=== PATIENT | female | born 1980 | race Caucasian/White ===

== ENCOUNTER 2021-09-04 11:13 | Emergency (ER) | payer BC ==
[~2021-09-04] VITALS: Ht 157.5 cm; Wt 72.7 kg
[2021-09-04] MEDS ORDERED: LORazepam 2 mg/ml vial IV ONE (11:45)
[2021-09-04] MEDS ORDERED: ondansetron/PF 4mg/2ml inj IV ONE (11:45)
[2021-09-04] MEDS ORDERED: normal saline 1000ML IV soln IVB ONE (11:45)
[2021-09-04 12:35] LABS: BASOPHILS % (AUTO) 0.2 % (0-1); EOSINOPHILS # (AUTO) 0.1 X10'3 (0-0.9); EOSINOPHILS % (AUTO) 0.6 % (0-6); HEMATOCRIT 47.4 % (35.0-45.0); HEMOGLOBIN 16.2 g/dl (12.0-16.0); LYMPHOCYTES # (AUTO) 1.5 X10'3 (1.1-4.8); LYMPHOCYTES % (AUTO) 15.4 % (21-51); MEAN CORPUSCULAR HEMOGLOBIN 27.8 PG (27.0-31.0); MEAN CORPUSCULAR HGB CONC 34.1 g/dL (33.0-36.5); MEAN CORPUSCULAR VOLUME 81.7 FL (78-98); MONOCYTES # (AUTO) 0.8 X10'3 (0-0.9); MONOCYTES % (AUTO) 7.9 % (2-12); NEUTROPHILS # (AUTO) 7.5 X10'3 (1.8-7.7); NEUTROPHILS % (AUTO) 75.9 % (42-75); PLATELET COUNT 436 X10'3 (140-440); RED BLOOD COUNT 5.81 X10'6 (4.20-5.60); WHITE BLOOD COUNT 9.9 X10'3 (4.5-11.0)
[2021-09-04 12:52] LABS: ALANINE AMINOTRANSFERASE 57 U/L (12-78); ALBUMIN/GLOBULIN RATIO 1.1 (1.1-1.5); ALKALINE PHOSPHATASE 68 IU/L (46-116); ANION GAP 8 (8-16); ASPARTATE AMINO TRANSFERASE 28 U/L (10-37); BLOOD UREA NITROGEN 13 MG/DL (7-18); BUN/CREATININE RATIO 10.3 (6.6-38.0); CALCIUM 9.3 MG/DL (8.5-10.1); CHLORIDE 96 MMOL/L (99-107); CREATININE 1.26 MG/DL (0.40-0.90); GLUCOSE 102 MG/DL (70-104); POTASSIUM 3.3 MMOL/L (3.5-5.1); SODIUM 137 MMOL/L (135-145); TOTAL CARBON DIOXIDE 32.7 MMOL/L (24-32); TOTAL PROTEIN 7.6 G/DL (6.4-8.2); eGFR 47 ML/MIN
[2021-09-04 13:03] LABS: ETHANOL < 0.010 GM/DL (0.0-0.010)
[2021-09-04 13:10] LABS: CLARITY,URINE SLIGHTLY CLOUDY (Clear); COLOR,URINE YELLOW (Yellow); GLUCOSE, URINE NEGATIVE (Neg); KETONES,URINE 40 mg/dl (Neg); LEUKOCYTE ESTERASE ,URINE NEGATIVE (Neg); NITRITES, URINE NEGATIVE (Neg); OCCULT BLOOD,URINE TRACE-INTACT (Neg); PROTEIN,URINE NEGATIVE (Neg); UROBILINOGEN,URINE 0.2 E.U/dL (0.2-1.0)
[2021-09-04 13:16] LABS: UA COLLECTION TYPE NON-SPECIFIED
[2021-09-04 13:17] LABS: AMORPHOUS URATES 1+; BACTERIA,URINE FEW /HPF (Neg); MUCUS STRANDS FEW /LPF (Neg); RBC,URINE 0-2 /HPF (0-2); SQUAMOUS EPITHELIAL CELL,UR MODERATE /LPF (FEW); WBC,URINE 0-4 /HPF (0-4)
[2021-09-04 13:38] LABS: URINE AMPHETAMINE SCREEN NEGATIVE (Neg); URINE BARBITUATE SCREEN NEGATIVE (Neg); URINE BENZODIAZEPINES SCREEN NEGATIVE (Neg); URINE CANNABINOID SCREEN POSITIVE (Neg); URINE COCAINE SCREEN NEGATIVE (Neg); URINE METHADONE SCREEN NEGATIVE (Neg); URINE OPIATE SCREEN NEGATIVE (Neg); URINE PHENCYCLIDINE SCREEN NEGATIVE (Neg)
--- NOTE | 2021-09-04 13:52 | NUR ---
TRANSFER TO OF PENDING WITH COVID SWAB. REPORT GIVEN TO VANESA SULTANA
--- NOTE | 2021-09-04 14:51 | NUR ---
PT'S IV FLUID HAS COMPLETED, NO VOMITING PRESENT. PT HAS BEEN MEDICALLY CLEARED AND TAKEN TO OF. REQUESTED THAT PT PACKET TO BE FAXED TO [facility]
--- NOTE | 2021-09-04 15:00 | NUR ---
Pt brought from ER to [facility] and placed in bed 20. Pt given warm blankets and ice chips. Pt has with her, who states he lives in the [place]. Pt is from [place].
[2021-09-04] MEDS ORDERED: CLON-528 PO (15:29)
[2021-09-04] MEDS ORDERED: ONDA-104 PO (15:29)
[2021-09-04] MEDS ORDERED: GABA-534 PO (15:29)
[2021-09-04] MEDS ORDERED: SERT25TA PO (15:29)
[2021-09-04] MEDS ORDERED: POTA20PA40 PO (15:29)
[2021-09-04] MEDS ORDERED: HYDR-3686 PO (15:29)
[2021-09-04] MEDS ORDERED: DULO-31 PO (15:29)
[2021-09-04] MEDS ORDERED: OLAN2.5T3 PO (15:29)
[2021-09-04] MEDS ORDERED: OLAN5TAB29 PO (15:29)
[2021-09-04] MEDS: hydrOXYzine 25 MG tablet PO PRN (17:35)
[2021-09-04] MEDS: ondansetron 4mg rapidly disintigrating tab PO PRN (17:36)
--- NOTE | 2021-09-04 17:44 | NUR ---
Pt seen by [facility] and placed on 5150 hold. Pt tearful after left and given Atarax and Zofran PRN. Pt is polite and pleasant yet anxious.
--- NOTE | 2021-09-04 18:45 | NUR ---
Moved to hallway bed in the main ER.
[2021-09-04] MEDS: OLANZapine 5mg rapidly disint. tablet PO SCH (20:25)
[2021-09-04] MEDS: potassium Cl 20 mEq SR tablet PO SCH (20:25)
--- NOTE | 2021-09-04 20:26 | NUR ---
Patient is cooperative, she rests in a high fowlers position on a hallway bed. She denies S/I or any hallucinations. Patient is medication compliant. Patient states "stressors are less here, better than in real life."
[2021-09-05] MEDS ORDERED: traZODone 50mg tablet PO STA (01:10)
[2021-09-05] MEDS: hydrOXYzine 25 MG tablet PO PRN ×3 (01:29→14:11)
--- NOTE | 2021-09-05 01:30 | NUR ---
Patient given trazadone for sleep, atarax for anxiety, also her neurontin. Patient is medication compliant.
--- NOTE | 2021-09-05 05:30 | NUR ---
Patient sleeps quietly.
--- NOTE | 2021-09-05 06:47 | NUR ---
IV DC'd from left EJ. Cath intact. Pressure dressing with foam tape. Patient assisting with direct pressure over bandage X2 minutes.
[2021-09-05] MEDS: sertraline 50mg tablet PO SCH (07:38)
[2021-09-05] MEDS: duloxetine 30mg CAPSULE.DR PO SCH (07:38)
[2021-09-05] MEDS: gabapentin 400mg capsule PO SCH ×3 (07:38→16:07)
[2021-09-05] MEDS: ondansetron 4mg rapidly disintigrating tab PO PRN (07:38)
[2021-09-05] MEDS: OLANZapine 2.5MG tablet PO SCH (07:38)
[2021-09-05] MEDS: potassium Cl 20 mEq SR tablet PO SCH ×2 (07:38→20:36)
[2021-09-05] MEDS: clonazePAM 0.5mg tablet PO SCH (07:38)
--- NOTE | 2021-09-05 08:19 | NUR ---
The patient was moved to bed 20 from the main ER. She was very cooperative with the move. The dressing to her neck is CDI. She reports anxiety. She denies that she is currently feeling like harming herself or any one else. She stated that at times she has those thoughts because of the stress in her life and her medical problems and added, "I just don't want to live like this" She stated that she has been having family issues and issues at work. She is alert, oriented and psychotic symptoms are denied. She reports racing thoughts and periods when she becomes over the top angry. She also reports that she feels she is being judged by others.
--- NOTE | 2021-09-05 09:58 | NUR ---
The patient is resting on her bed
--- NOTE | 2021-09-05 11:37 | NUR ---
The patient is resting on her bed.
--- NOTE | 2021-09-05 12:18 | NUR ---
The patient appears to be sleeping
--- NOTE | 2021-09-05 14:14 | NUR ---
The patient is vomiting and states she is purposefully making herself throw up to relieve her anxiety. She did this instead of asking for anxiety medication which she just now requested. Once she was given a dose of atarax she immediately stopped vomiting and is laying down.
--- NOTE | 2021-09-05 16:17 | NUR ---
The patient up to use the bathroom
--- NOTE | 2021-09-05 17:23 | NUR ---
Dr. Todd made aware that patient's BP was 180/132. Will continue to monitor.
[2021-09-05] MEDS ORDERED: hydrOXYzine 25 MG tablet PO ONE (18:05)
--- NOTE | 2021-09-05 19:00 | NUR ---
Patient is sleeping quietly, low fowlers in bed.
[2021-09-05] MEDS ORDERED: traZODone 50mg tablet PO ONE (20:00)
[2021-09-05] MEDS ORDERED: traZODone 50mg tablet PO SCH (20:00)
--- NOTE | 2021-09-05 20:01 | NUR ---
Patient continues to sleep quietly.
[2021-09-05] MEDS: OLANZapine 5mg rapidly disint. tablet PO SCH (20:37)
--- NOTE | 2021-09-05 20:43 | NUR ---
Patient awoke for night medications, she returned to sleep.
--- NOTE | 2021-09-05 23:10 | NUR ---
Patient is sleeping quietly on her right side.
--- NOTE | 2021-09-06 00:36 | NUR ---
Patient is sleeping quietly on her left side.
--- NOTE | 2021-09-06 02:37 | NUR ---
Patient awoke, up to bathroom to void. Back to bed. Given fresh water.
--- NOTE | 2021-09-06 03:15 | NUR ---
Patient awoke and requested additional water and food. "I haven't eaten for days." The patient ate a sandwich and consumed the pitcher of water. She then proceeded to the bathroom. The patient was heard purging through the bathroom door. The patient then exited the bathroom and returned to bed, and then to sleep.
[2021-09-06] MEDS: ondansetron 4mg rapidly disintigrating tab PO PRN ×2 (05:21→17:10)
[2021-09-06] MEDS: hydrOXYzine 25 MG tablet PO PRN (05:47)
--- NOTE | 2021-09-06 05:48 | NUR ---
Patient now exhibits anxiety. This advertising copywriter gave patient a PO Atarax 25 mg and attempted to redirect her with calming measures.
--- NOTE | 2021-09-06 06:30 | NUR ---
Recieved pt. awake and c/o nausea, recent dose of Zofran admin prior arrival, no s/sx of respiratory distress.
[2021-09-06] MEDS ORDERED: LORazepam 1 MG tablet PO ONE (06:55)
[2021-09-06] MEDS ORDERED: OLANZapine 5mg rapidly disint. tablet PO ONE (06:55)
[2021-09-06] MEDS: OLANZapine 2.5MG tablet PO SCH (07:10)
[2021-09-06] MEDS: potassium Cl 20 mEq SR tablet PO SCH ×2 (07:46→20:00)
[2021-09-06] MEDS: gabapentin 400mg capsule PO SCH ×4 (07:47→23:50)
[2021-09-06] MEDS: duloxetine 30mg CAPSULE.DR PO SCH (07:47)
[2021-09-06] MEDS: sertraline 50mg tablet PO SCH (07:47)
[2021-09-06] MEDS: clonazePAM 0.5mg tablet PO SCH (08:00)
--- NOTE | 2021-09-06 08:30 | NUR ---
Pt. asleep, with no s/sx of distress, easily woke and refused needing any fluids or snacks
--- NOTE | 2021-09-06 10:30 | NUR ---
Pt. asleep with no s/sx of distress noted.
--- NOTE | 2021-09-06 12:30 | NUR ---
Pt. awake and sitting on bed eating, no distress noted.
--- NOTE | 2021-09-06 14:30 | NUR ---
Pt. awake laying on bed no s/sx of distress noted.
--- NOTE | 2021-09-06 16:30 | NUR ---
Pt. awake and walking around unit, and asked for a hairbrush; given.
--- NOTE | 2021-09-06 19:17 | NUR ---
Patient made phone call to friend, Patient states she was happy she could eat food this evening after receiving zofran an hour before dinner had arrived. Patient requested Trazodone 50mg [address] Dr Dodd approved for 2100.
[2021-09-06] MEDS: OLANZapine 5mg rapidly disint. tablet PO SCH (20:10)
[2021-09-06] MEDS ORDERED: traZODone 50mg tablet PO ONE (21:00)
--- NOTE | 2021-09-06 21:00 | NUR ---
Patient took evening medications. Patient has schdueled K 40MEQ, last lab drawn on 09/04. Holding K until new labs are drawn. CMP ordered.
[2021-09-06 21:30] LABS: ALANINE AMINOTRANSFERASE 43 U/L (12-78); ALBUMIN 3.2 G/DL (3.4-5.0); ALBUMIN/GLOBULIN RATIO 1.1 (1.1-1.5); ALKALINE PHOSPHATASE 54 IU/L (46-116); ANION GAP 10 (8-16); ASPARTATE AMINO TRANSFERASE 19 U/L (10-37); BILIRUBIN,TOTAL 0.5 MG/DL (0.1-1.0); BLOOD UREA NITROGEN 10 MG/DL (7-18); BUN/CREATININE RATIO 10.1 (6.6-38.0); CALCIUM 8.7 MG/DL (8.5-10.1); CHLORIDE 102 MMOL/L (99-107); CREATININE 0.99 MG/DL (0.40-0.90); GLUCOSE 106 MG/DL (70-104); POTASSIUM 3.6 MMOL/L (3.5-5.1); SODIUM 140 MMOL/L (135-145); TOTAL CARBON DIOXIDE 28.4 MMOL/L (24-32); TOTAL PROTEIN 6.2 G/DL (6.4-8.2); eGFR 62 ML/MIN
--- NOTE | 2021-09-06 22:53 | NUR ---
Pt appras to be sleeping at this time with her blankets off.
--- NOTE | 2021-09-07 02:49 | NUR ---
Patient appears to be sleepimg ar rhis time.
--- NOTE | 2021-09-07 04:57 | NUR ---
Patient up using the restroom.
[2021-09-07 06:25] VITALS: BP 134/102
--- NOTE | 2021-09-07 06:41 | NUR ---
received Pt in bed sleeping w/o distress.
[2021-09-07] MEDS: gabapentin 400mg capsule PO SCH (08:10)
[2021-09-07] MEDS: sertraline 50mg tablet PO SCH (08:10)
[2021-09-07] MEDS: clonazePAM 0.5mg tablet PO SCH (08:10)
[2021-09-07] MEDS: duloxetine 30mg CAPSULE.DR PO SCH (08:10)
[2021-09-07] MEDS: potassium Cl 20 mEq SR tablet PO SCH (08:10)
[2021-09-07] MEDS: OLANZapine 2.5MG tablet PO SCH (08:10)
[2021-09-07] MEDS: ondansetron 4mg rapidly disintigrating tab PO PRN (08:10)
--- NOTE | 2021-09-07 08:15 | NUR ---
Pt awake and took AM meds along with Zofran PRN. Pt eating small amount of breakfast at this time.
[2021-09-07] MEDS: hydrOXYzine 25 MG tablet PO PRN (09:57)
--- NOTE | 2021-09-07 10:30 | NUR ---
Pt anxious about leaving. Pt spoke earlier with [facility] Clinician and mutually decided to seek out-pt therapist and go home.
--- NOTE | 2021-09-07 12:09 | NUR ---
Met with patient in regards to marijuana use and to see if patient was interested in treatment options. Patient declined any resources.
--- NOTE | 2021-09-07 12:45 | NUR ---
Pt discharged to . Pt remains anxious about leaving but did make discharge plans with [facility] Clinician to seek out Pt therapy and primary care physician.
== END 2021-09-07 13:47 | disposition home or self-care (01) ==
LOC: ER 11:15
DX: R45.851 Suicidal ideations (principal); F41.9 Anxiety disorder, unspecified; Z20.822 Contact with and (suspected) exposure to COVID-19; R11.15 Cyclical vomiting syndrome unrelated to migraine; E86.0 Dehydration; F12.90 Cannabis use, unspecified, uncomplicated; Z88.8 Allergy status to other drugs, medicaments and biological substances; Z79.899 Other long term (current) drug therapy
CPT/HCPCS: 36415; 80053; 80305; 80320; 81001; 84443; 85025; 87811; 96361; 96374; 96375; 99285; J2060; J2405; J7030; Q0177